=== PATIENT | male | born 1980 ===

== ENCOUNTER 2016-09-14 02:14 | Emergency (ER) | payer OTHER ==
[~2016-09-14] VITALS: Ht 177.8 cm; Wt 86.2 kg
[~2016-09-14 02:14] MED LIST: CYCLOBENZAPRINE5 M2 PO
--- NOTE | 2016-09-14 02:46 | ED UPPER/LOWER EXTREMITY COMPL ---
History of Present Illness General Chief Complaint: Shoulder Injury Stated Complaint: RIGHT SHOULDER Source: patient Exam Limitations: no limitations Vital Signs & Intake/Output Vital Signs & Intake/Output Vital Signs Date Time Temp Pulse Resp B/P Pulse O2 O2 Flow FiO2 Ox Delivery Rate 09/14 0251 77 18 120/79 99 Room Air Allergies Coded Allergies: No Known Allergies (03/17/16) Reconcile Medications Cyclobenzaprine HCl 5 MG TABLET 1 TAB PO BID PRN MUSCLE SPASMS Ibuprofen 800 MG TABLET 1 TAB PO TID PAIN Triage Nurses Notes Reviewed? yes Onset: Gradual Duration: day(s): Timing: recent history Severity: moderate Pain/Injury Location: Right: Shoulder. Method of Injury: "I was throwing a baseball 2 days ago and started to have pain yesterday" No Modifying Factors: none Modifying Factors: Worsens With: movement. Associated Symptoms: pain in shoulder HPI: 36 yo gentleman presents with right shoulder pain after throwing a baseball 2 days ago. He notes that the pain worsened yesterday. He feels stiff and sore in his right shoulder. He had no direct trauma. He is otherwise well. Past History Travel History Traveled to [place] past 21 day No Medical History Any Pertinent Medical History? see below for history Neurological: NONE EENT: NONE Cardiovascular: NONE Respiratory: NONE Gastrointestinal: NONE Hepatic: NONE Renal: nephrolithiasis Musculoskeletal: NONE Psychiatric: NONE Endocrine: NONE Blood Disorders: NONE Cancer(s): NONE HEADWAITER/HEADWAITRESS/Reproductive: NONE Surgical History Surgical History: non-contributory Psychosocial History What is your primary language Amharic Family History Hx Contributory? No Review of Systems Review of Systems Constitutional: Reports: no symptoms. EENTM: Reports: no symptoms. Respiratory: Reports: no symptoms. Cardiovascular: Reports: no symptoms. Gastrointestinal/Abdominal: Reports: no symptoms. Genitourinary: Reports: no symptoms. Musculoskeletal: Reports: no symptoms. Skin: Reports: no symptoms. Neurological/Psychological: Reports: no symptoms. Hematologic/Endocrine: Reports: no symptoms. Immunological: Reports: no symptoms. All Other Systems: Reviewed and Negative Physical Exam Physical Exam General Appearance: well developed/nourished, mild distress Head: atraumatic Eyes: Bilateral: normal appearance. Ears, Nose, Throat: normal pharynx, normal ENT inspection, hearing grossly normal Neck: normal inspection, supple Cardiovascular/Respiratory: regular rate/rhythm Back: normal inspection Shoulder Right: normal inspection, limited range of motion, no bony tenderness. pain elicited with rotator cuff maneuvers. strength and light touch are intact Skin: intact, normal color, warm/dry Lymphatic: no anterior cervical domenic Progress Differential Diagnosis: sprain, tendon injury Plan of Care: Current Medications Sig/Kendra Start time Last Medication Dose Stop Time Status Admin Ibuprofen 800 MG ONCE ONE 09/14 314 UNVr (Motrin) 09/15 315 Departure Departure Disposition: HOME OR SELF CARE Condition: Stable Clinical Impression Primary Impression: Rotator cuff tendonitis Referrals: AMANDEEP STEPHENSON,GABINO Roche (PCP/Family) Departure Forms: Customer Survey General Discharge Information Prescriptions: Current Visit Scripts Ibuprofen 1 TAB PO TID #60 TAB Comments pt's right arm placed in sling by nursing team... pt referred to ortho.
[2016-09-14 02:51] VITALS: BP 120/79
[2016-09-14] MEDS ORDERED: IBUPROFEN800 M1 PO (03:03)
== END 2016-09-14 03:14 ==
LOC: ERH 02:14
DX: M75.81 Other shoulder lesions, right shoulder (principal)